=== PATIENT | male | born 1970 | race African-American/Black ===

== ENCOUNTER 2025-06-17 20:17 | Emergency (ER) | payer SELFPAY ==
[2025-06-17] MEDS ORDERED: Sodium Chloride 0.9% 10 ML Syringe FLUSH PRN (20:20)
[2025-06-17] MEDS: Furosemide 40 MG/4 ML VIAL IVPUSH ONE (20:33)
[2025-06-17 20:45] LABS: BASOPHILS ABSOLUTE AUTO 0.1 x10-3/uL (0.0-0.3); BASOPHILS PERCENT AUTO 0.9 % (0.3-3.8); EOSINOPHILS ABSOLUTE AUTO 0.2 x10-3/uL (0.0-0.6); EOSINOPHILS PERCENT AUTO 3.5 % (0.1-6.8); LYMPHOCYTES ABSOLUTE AUTO 1.2 x10-3/uL (0.5-4.5); LYMPHOCYTES PERCENT AUTO 17.8 % (15.8-45.3); MEAN PLATELET VOLUME 10.5 fL (6.7-11.0); MONOCYTES ABSOLUTE AUTO 0.7 x10-3/uL (0.0-1.2); MONOCYTES PERCENT AUTO 10.1 % (5.5-15.2); NEUTROPHILS ABSOLUTE AUTO 4.7 x10-3/uL (1.7-6.9); NEUTROPHILS PERCENT AUTO 67.7 % (40.3-71.8); PLATELET COUNT,PLT 134 x10(3)uL (117-477); RED BLOOD CELL COUNT 5.18 x10(6)uL (3.90-5.90); RED CELL DISTRIBUTION WIDTH 14.5 % (12.4-15.0); WHITE BLOOD CELL COUNT,WBC 6.9 x10-3/uL (3.2-10.1)
[2025-06-17 20:55] LABS: A/G RATIO 0.8; ALANINE AMINOTRANSFERASE,ALT 50 U/L (12-36); ASPARTATE AMNIOTRANSFERASE,AST 36 IU/L (5-25); BILIRUBIN TOTAL 0.5 mg/dL (0.1-1.3); BLOOD UREA NITROGEN,BUN 18 mg/dL (7-18); CARBON DIOXIDE,CO2 29 mmol/L (21-32); CHLORIDE,CL 104 mmol/L (100-110); CREATININE 1.9 mg/dL (0.70-1.30); EST CRCL DRUG DOSING (CG) 53.12 mL/min; ESTIMATED GFR 41 mL/min (>60); GLUCOSE RANDOM 108 mg/dL (80-116); POTASSIUM,K 4.2 mmol/L (3.5-5.3); PROTEIN TOTAL,TP 7.3 g/dL (6.0-8.0); SODIUM,NA 140 mmol/L (135-145)
[2025-06-17] MEDS ORDERED: Heparin Sodium 5,000 Units/ML Vial IVPUSH ONE (21:55)
[2025-06-17] MEDS: Heparin Sodium/0.45% NaCl 500 ML IV SCH (22:05)
[2025-06-17] MEDS: Heparin Sodium 5,000 Units/ML Vial IVPUSH ONE ×2 (22:05→22:40)
== END 2025-06-17 23:36 ==
LOC: FB.ED 20:17
DX: I21.4 Non-ST elevation (NSTEMI) myocardial infarction (principal); I50.40 Unspecified combined systolic (congestive) and diastolic (congestive) heart failure; E11.9 Type 2 diabetes mellitus without complications; Z95.0 Presence of cardiac pacemaker
CPT/HCPCS: 71045; 80053; 83036; 83880; 84484; 85025; 85379; 93005; 96365; 96366; 96375; 99285; A9270; J1644; J1938; J7620; 93010

== ENCOUNTER 2025-07-01 18:50 | Emergency (ER) | payer MEDICAID ==
[2025-07-01 19:48] LABS: BASOPHILS ABSOLUTE AUTO 0.1 x10-3/uL (0.0-0.3); BASOPHILS PERCENT AUTO 0.9 % (0.3-3.8); EOSINOPHILS ABSOLUTE AUTO 0.2 x10-3/uL (0.0-0.6); EOSINOPHILS PERCENT AUTO 3.4 % (0.1-6.8); LYMPHOCYTES ABSOLUTE AUTO 1.4 x10-3/uL (0.5-4.5); LYMPHOCYTES PERCENT AUTO 22.2 % (15.8-45.3); MEAN PLATELET VOLUME 9.6 fL (6.7-11.0); MONOCYTES ABSOLUTE AUTO 0.7 x10-3/uL (0.0-1.2); MONOCYTES PERCENT AUTO 10.7 % (5.5-15.2); NEUTROPHILS ABSOLUTE AUTO 4.1 x10-3/uL (1.7-6.9); NEUTROPHILS PERCENT AUTO 62.8 % (40.3-71.8); PLATELET COUNT,PLT 231 x10(3)uL (117-477); RED BLOOD CELL COUNT 4.84 x10(6)uL (3.90-5.90); RED CELL DISTRIBUTION WIDTH 14.7 % (12.4-15.0); WHITE BLOOD CELL COUNT,WBC 6.5 x10-3/uL (3.2-10.1)
[2025-07-01 20:01] LABS: A/G RATIO 0.8; ALANINE AMINOTRANSFERASE,ALT 29 U/L (12-36); ASPARTATE AMNIOTRANSFERASE,AST 18 IU/L (5-25); BILIRUBIN TOTAL 0.4 mg/dL (0.1-1.3); BLOOD UREA NITROGEN,BUN 23 mg/dL (7-18); CARBON DIOXIDE,CO2 23 mmol/L (21-32); CHLORIDE,CL 107 mmol/L (100-110); CREATININE 1.9 mg/dL (0.70-1.30); EST CRCL DRUG DOSING (CG) 53.12 mL/min; ESTIMATED GFR 41 mL/min (>60); GLUCOSE RANDOM 124 mg/dL (80-116); POTASSIUM,K 4.3 mmol/L (3.5-5.3); PROTEIN TOTAL,TP 7.1 g/dL (6.0-8.0); SODIUM,NA 138 mmol/L (135-145)
[2025-07-01 20:13] LABS: ETHANOL BLOOD MEDICAL < 0.03 % (<0.03); PRO B-TYPE NATRIUR PEPT,BNPPRO 1182 pg/mL (<=125)
[2025-07-01] MEDS: Iopamidol 755 Mg/ML 100 ML Bottle IV SCH (20:40)
[2025-07-01] MEDS: Ondansetron 4 MG/2 ML SDV IVPUSH ONE (22:41)
[2025-07-01] MEDS: Sodium Chloride 0.9% 10 ML Syringe FLUSH PRN (22:42)
== END 2025-07-01 23:05 ==
LOC: FB.ED 18:50
DX: I63.9 Cerebral infarction, unspecified (principal); N17.9 Acute kidney failure, unspecified
CPT/HCPCS: 36415; 70450; 70496; 70498; 80053; 80307; 83880; 84484; 85025; 93005; 93010; 96374; 96375; 99285; 99285-25; J2270; J2405; Q9967